=== PATIENT | male | born 1970 | race Caucasian/White ===

== ENCOUNTER 2025-04-01 20:18 | Emergency (ER) | payer OTHER ==
[~2025-04-01] VITALS: Ht 175.3 cm; Wt 68.0 kg
[2025-04-01] MEDS ORDERED: IBUPROFEN 600 MG TABLET ONE (20:39)
[2025-04-01 20:58] VITALS: TEMP 98.4
[2025-04-01] MEDS: IBUPROFEN 600 MG TABLET PO ONE (20:58)
[2025-04-01] MEDS ORDERED: IBUP-1490 PO (21:30)
[2025-04-01 21:50] VITALS: BP 139/80; O2SAT 98
== END 2025-04-02 00:56 | disposition left against medical advice (07) ==
LOC: ER 20:20
DX: S00.00XA Unspecified superficial injury of scalp, initial encounter (principal); F20.9 Schizophrenia, unspecified; L55.0 Sunburn of first degree; Z60.2 Problems related to living alone; X58.XXXA Exposure to other specified factors, initial encounter; Y93.01 Activity, walking, marching and hiking; Y92.89 Other specified places as the place of occurrence of the external cause; Y99.8 Other external cause status
CPT/HCPCS: 70450-TC

== ENCOUNTER 2025-07-30 06:45 | Emergency (ER) | payer OTHER ==
[~2025-07-30] VITALS: Ht 172.7 cm; Wt 68.0 kg
[~2025-07-30 06:45] MED LIST: IBUP-1490 PO
[2025-07-30 06:59] VITALS: BP 134/73; TEMP 98.1
[2025-07-30 07:25] VITALS: O2SAT 97
== END 2025-07-30 07:26 | disposition home or self-care (01) ==
LOC: ER 06:45
DX: L98.9 Disorder of the skin and subcutaneous tissue, unspecified (principal); Z59.00 Homelessness unspecified; F20.9 Schizophrenia, unspecified

== ENCOUNTER 2025-07-30 15:32 | Emergency (ER) | payer OTHER | END 2025-07-30 16:02 | disposition left against medical advice (07) | LOC: ER 15:35 | DX: R51.9 Headache, unspecified (principal); Z53.21 Procedure and treatment not carried out due to patient leaving prior to being seen by health care provider ==